=== PATIENT | male | born 1955 | race Caucasian/White ===

== ENCOUNTER 2018-09-23 12:21 | Inpatient (IN) | payer OTHER ==
[~2018-09-23] VITALS: Ht 175.3 cm; Wt 85.7 kg
--- NOTE | 2018-09-23 12:40 | NUR ---
patient presented to the ER c/o L sided chest pressure, constant, nonradiating, since this morning. On room air, breathing evenly and unlabored. Connected to the monitor and pulse ox. Kept comfortable. will continue to monitor accordigly.
[2018-09-23] MEDS ORDERED: ASPIRIN 81 MG TAB.CHEW ONE (12:43)
[2018-09-23 12:48] LABS: BASOPHILS # (AUTO) 0.1 /CMM (0.0-0.2); BASOPHILS % (AUTO) 1.2 % (0.0-2.0); EOSINOPHILS % (AUTO) 5.6 % (0.0-6.0); HEMATOCRIT 50 % (39-51); HEMOGLOBIN 16.8 g/dL (13.5-17.5); LYMPHOCYTES # (AUTO) 1.4 /CMM (0.8-4.8); LYMPHOCYTES % (AUTO) 20.1 % (20.0-44.0); MEAN CORPUSCULAR HGB CONC 33 g/dl (31.0-36.0); MEAN CORPUSCULAR VOLUME 87 fL (80-96); MONOCYTES # (AUTO) 0.6 /CMM (0.1-1.30); MONOCYTES % (AUTO) 9.5 % (2.0-12.0); NEUTROPHILS # (AUTO) 4.3 /CMM (1.8-8.9); NEUTROPHILS % (AUTO) 63.6 % (43.0-81.0); PLATELET COUNT (AUTO) 175 /CMM (150-450); RED BLOOD CELL COUNT(AUTO) 5.75 MIL/uL (4.5-6.0); WHITE BLOOD COUNT (AUTO) 6.8 K/uL (4.3-11.0)
[2018-09-23] MEDS ORDERED: ASPIRIN 81 MG TAB.CHEW PO ONE (13:00)
--- NOTE | 2018-09-23 13:12 | NUR ---
CALLED HOUSE SUP FOR TELE BED.
[2018-09-23 13:15] LABS: CALCIUM, SERUM 9.6 mg/dL (8.5-10.1); CARBON DIOXIDE 26 mmol/L (21-32); CHLORIDE 105 mmol/L (98-107); GLUCOSE 110 mg/dL (74-106); POTASSIUM 3.9 mmol/L (3.5-5.1); SODIUM SERUM 138 mmol/L (136-145); UREA NITROGEN, BLOOD 10 mg/dL (7-18)
[2018-09-23 13:20] LABS: ALANINE AMINOTRANSFERASE 41 U/L (12-78); ALBUMIN 3.5 g/dL (3.4-5.0); ALKALINE PHOSPHATASE 117 U/L (46-116); ASPARTATE AMINOTRANSFERASE 29 U/L (15-37); BILIRUBIN,DIRECT 0.1 mg/dL (0.0-0.2); BILIRUBIN,TOTAL 0.6 mg/dL (0.2-1.0); TOTAL PROTEIN, SERUM 7.6 g/dL (6.4-8.2)
[2018-09-23] MEDS ORDERED: ZOLPIDEM TARTRATE 5 MG TABLET PO PRN (14:00)
[2018-09-23] MEDS ORDERED: NITROGLYCERIN 0.4 MG/TAB BOTTLE SL ONE ×2 (14:00→19:30)
[2018-09-23] MEDS ORDERED: Z GUARD REMEDY 2 OZ OINT TP PRN (14:00)
[2018-09-23] MEDS ORDERED: MAG HYDROX/AL HYDROX/SIMETH 30 ML UDC PO PRN (14:00)
[2018-09-23] MEDS ORDERED: HYDROCODONE/APAP 5/325MG 1 EACH TABLET PO PRN (14:00)
[2018-09-23] MEDS ORDERED: MAGNESIUM HYDROXIDE 30 ML UDC PO PRN (14:00)
[2018-09-23] MEDS ORDERED: MORPHINE SULFATE INJ 2 MG/ML DISP.SYRIN IV PRN (14:00)
[2018-09-23] MEDS ORDERED: ACETAMINOPHEN 325 MG TABLET PO PRN (14:00)
[2018-09-23] MEDS ORDERED: ONDANSETRON HCL/PF 4 MG/2 ML VIAL IVP PRN (14:00)
--- NOTE | 2018-09-23 14:33 | NUR ---
TELE BED GIVEN 304-2
--- NOTE | 2018-09-23 15:00 | NUR ---
KNITTER OPERATORBROKER IN CHARGE NOTES Received Patient in stable condition via helderrmic. A/O x 4. Patient ambulatory. Sitting on chair and on cellphone at this moment. VS stable with no acute distress. Breathing even and unlabored on room air with no respiratory distress. Denies pain. Tele monitor in place and operational. SR, HR-82. PIV on RAC 18g. IV site clean, dry, intact and flushes well. Skin intact, no pictures required. Belongings recorded. Call light within reach. Will continue to monitor.
--- NOTE | 2018-09-23 15:10 | NUR ---
wheeled patient via gurney to room 304-2 T accompanied by emt and RN assigned in no apparent distress noted. Alaina RN at bedside and assumed care.
[2018-09-23 16:00] VITALS: BP 167/100
[2018-09-23] MEDS ORDERED: ATORVASTATIN 40 MG TABLET PO SCH (16:00)
[2018-09-23] MEDS ORDERED: CARVEDILOL 3.125 MG TABLET PO SCH (17:00)
[2018-09-23] MEDS: METOPROLOL TARTRATE 50 MG TABLET PO SCH ×2 (17:37→23:13)
[2018-09-23 18:20] VITALS: BP 167/103
--- NOTE | 2018-09-23 18:24 | NUR ---
MELTER LOADER NOTES Patient left for CT Angiogram with contrast via wheelchair with transport at this moment.
[2018-09-23] MEDS ORDERED: IOHEXOL-350 100 ML VIAL IV ONE (18:28)
[2018-09-23] MEDS ORDERED: CT SWABBABLE VALVE TRANS SET 1 EA INFUS.SET MC ONE (18:28)
[2018-09-23] MEDS ORDERED: IV NS 0.9% 250 ML IV ONE (18:28)
[2018-09-23] MEDS ORDERED: METOPROLOL TARTRATE INJ 5 MG/5 ML AMPUL ONE ×2 (18:45→19:07)
[2018-09-23] MEDS ORDERED: NITROGLYCERIN 0.4 MG/TAB BOTTLE ONE (18:45)
[2018-09-23] MEDS ORDERED: IV NS 0.9% 500 ML IV PRN (19:30)
[2018-09-23] MEDS ORDERED: METOPROLOL TARTRATE INJ 5 MG/5 ML AMPUL IVP ONE (19:30)
--- NOTE | 2018-09-23 19:55 | NUR ---
AVIATION ELECTRONIC WARFARE OPERATOR OPENING NOTES Patient came back from CT angio, alert, oriented x 4. Breathing even and unlabored. Not in any distress. Patient has no complaints at this time, denies chest pain. Asked for his dinner- heated up and given to patient. Tele monitor in place- sinus rhythm 85. Call light within reach. Bed in low, locked position. Patient stable as endorsed by the AM RN. Will continue to monitor accordingly
--- NOTE | 2018-09-23 19:58 | NUR ---
HYDROMETEOROLOGIST CLOSING NOTES Patient in Radiology Dept. for CT Angiogram at this moment. Last seen Patient at 1824 in stable condition. All needs rendered. VS stable with no acute distress. Breathing even and unlabored on room air with no respiratory distress. Denies pain. A/O x 4. Patient ambulatory. Tele monitor in place and operational. SR, HR-79. PIV on RAC 18g saline lock. IV site clean, dry, intact and flushes well. Will endorse plan of care to oncoming nurse.
[2018-09-23 20:00] VITALS: BP 142/99
--- NOTE | 2018-09-23 22:40 | NUR ---
RN NOTES Patient c/o of mild headache. Requesting for tylenol- given as ordered. Will continue to monitor. Patient also requesting to be unhooked from IVF as it would be hard for him to sleep if he is connected to IVF.
[2018-09-24] VITALS: BP 134/92
[2018-09-24 04:00] VITALS: BP 130/88
[2018-09-24] MEDS: METOPROLOL TARTRATE 50 MG TABLET PO SCH (05:34)
--- NOTE | 2018-09-24 06:59 | NUR ---
RADIAGRAPH OPERATOR CLOSING NOTES Patient sitting up in chair near bed, alert, oriented x 4. All needs rendered. VS stable with no acute distress. Breathing even and unlabored, on room air with no respiratory distress. No complaints of chest pain throughout the shift. Tele monitor in place and operational, SR, HR-64. IV line on RAC 18g saline lock. IV site clean, dry, intact and flushes well. Will endorse plan of care to oncoming nurse.
[2018-09-24 07:38] LABS: BASOPHILS # (AUTO) 0.1 /CMM (0.0-0.2); BASOPHILS % (AUTO) 1.3 % (0.0-2.0); EOSINOPHILS % (AUTO) 5.1 % (0.0-6.0); HEMATOCRIT 52 % (39-51); HEMOGLOBIN 17.3 g/dL (13.5-17.5); LYMPHOCYTES # (AUTO) 1.2 /CMM (0.8-4.8); LYMPHOCYTES % (AUTO) 17.3 % (20.0-44.0); MEAN CORPUSCULAR HGB CONC 34 g/dl (31.0-36.0); MEAN CORPUSCULAR VOLUME 87 fL (80-96); MONOCYTES # (AUTO) 0.7 /CMM (0.1-1.30); MONOCYTES % (AUTO) 10.7 % (2.0-12.0); NEUTROPHILS # (AUTO) 4.5 /CMM (1.8-8.9); NEUTROPHILS % (AUTO) 65.6 % (43.0-81.0); PLATELET COUNT (AUTO) 184 /CMM (150-450); RED BLOOD CELL COUNT(AUTO) 5.91 MIL/uL (4.5-6.0); WHITE BLOOD COUNT (AUTO) 6.9 K/uL (4.3-11.0)
--- NOTE | 2018-09-24 07:47 | NUR ---
RN MS OPENING NOTES Received patient on room air, no sob noted. Patient a/o x4, patient denies pain at this time time. IV site clean and intact. Patient seen standing with good gait and balance. Patient's bed at the lowest setting, call light within reach.
[2018-09-24 07:52] LABS: CALCIUM, SERUM 9.7 mg/dL (8.5-10.1); CREATININE 1.1 mg/dL (0.6-1.3); MAGNESIUM 2.1 mg/dL (1.8-2.4); PHOSPHORUS 3.9 mg/dL (2.5-4.9); POTASSIUM 4.5 mmol/L (3.5-5.1)
[2018-09-24 08:00] VITALS: BP 152/84
[2018-09-24 08:09] LABS: THYROID STIMULATING HORMONE 3.353 uIU/mL (0.358-3.74)
[2018-09-24 08:21] VITALS: BP 152/89
[2018-09-24] MEDS ORDERED: VALSARTAN 80 MG TABLET PO SCH (09:00)
[2018-09-24] MEDS ORDERED: METOPROLOL TARTRATE 50 MG TABLET PO SCH (09:00)
[2018-09-24] MEDS ORDERED: ASPIRIN 81 MG TAB.CHEW PO SCH (09:00)
[2018-09-24] MEDS ORDERED: METO100T14 PO (11:15)
[2018-09-24] MEDS ORDERED: ASPI-1169 PO (11:15)
[2018-09-24] MEDS ORDERED: VALS160T2 PO (11:15)
--- NOTE | 2018-09-24 12:34 | NUR ---
RN MS DISCHARGE NOTES Patient discharged around 1210. No sob noted, vital signs stable. Patient went home with his . Patient had all the discharge paper signed, and with all questions answered. Patient's belonging's list is signed and nothing is missing. Patient went home with all his clothes, money, credit card, and cell phone hvac refrigeration technician. Patient had his prescription with him as well.
== END 2018-09-24 12:10 | disposition home or self-care (01) | DRG 305 ==
LOC: ER 12:26 → TELE 14:38 → MED 09-24 08:34
PROVIDERS: ADMIT Nurse Practitioner Acute Care; ATTEND Nurse Practitioner Acute Care
DX: I16.0 Hypertensive urgency (principal); F41.9 Anxiety disorder, unspecified; F12.90 Cannabis use, unspecified, uncomplicated; G89.29 Other chronic pain; M54.9 Dorsalgia, unspecified; I10 Essential (primary) hypertension
CPT/HCPCS: 36415; 71045-TC; 75574; 80048-TC; 80061-TC; 80076-TC; 83690-TC; 83735-TC; 84100-TC; 84443-TC; 84484-TC; 85025-TC; 87081-TC; 93307-TC; G0378; J3490; J7040; J7050; Q9967

== ENCOUNTER 2020-09-14 07:16 | Inpatient (IN) | payer OTHER, MEDICARE ==
[~2020-09-14] VITALS: Ht 175.3 cm; Wt 83.0 kg
[~2020-09-14 07:16] MED LIST: ASPI-1169 PO; METO100T14 PO; VALS160T2 PO
--- NOTE | 2020-09-14 07:35 | NUR ---
patient came in to the er c/o chest tightness x 1 week, worse this morning. On room air, breathing evenly and unlabored. connected to the monitor and pulse ox. kept comfortable, will continue to monitor accordingly.
--- NOTE | 2020-09-14 07:55 | NUR ---
MOVE SHEET SUBMITTED AND CALLED FOR TELE BED.
[2020-09-14] MEDS ORDERED: NITROGLYCERIN 0.4 MG/TAB BOTTLE SL ONE (08:00)
[2020-09-14] MEDS ORDERED: ASPIRIN 325 MG TABLET PO ONE (08:00)
--- NOTE | 2020-09-14 08:02 | NUR ---
Patient denies any pain at this time 5 mins after first nitro tab given, MD notifed and will continue to monitor accordingly.
--- NOTE | 2020-09-14 08:03 | NUR ---
IV access initiated, blood drawned and sent to lab.
[2020-09-14 08:04] LABS: BASOPHILS # (AUTO) 0.1 /CMM (0.0-0.2); BASOPHILS % (AUTO) 1.1 % (0.0-2.0); EOSINOPHILS % (AUTO) 2.4 % (0.0-6.0); HEMATOCRIT 47 % (39-51); HEMOGLOBIN 15.2 g/dL (13.5-17.5); LYMPHOCYTES % (AUTO) 14.1 % (20.0-44.0); MEAN CORPUSCULAR HGB CONC 33 g/dl (31.0-36.0); MEAN CORPUSCULAR VOLUME 87 fL (80-96); MONOCYTES # (AUTO) 0.6 /CMM (0.1-1.30); MONOCYTES % (AUTO) 8.1 % (2.0-12.0); NEUTROPHILS # (AUTO) 5.1 /CMM (1.8-8.9); NEUTROPHILS % (AUTO) 74.3 % (43.0-81.0); PLATELET COUNT (AUTO) 207 /CMM (150-450); RED BLOOD CELL COUNT(AUTO) 5.41 MIL/uL (4.5-6.0); WHITE BLOOD COUNT (AUTO) 6.9 K/uL (4.3-11.0)
[2020-09-14 08:15] LABS: CALCIUM, SERUM 8.9 mg/dL (8.5-10.1); CARBON DIOXIDE 27 mmol/L (21-32); CHLORIDE 105 mmol/L (98-107); CREATININE 1.2 mg/dL (0.6-1.3); GLUCOSE 113 mg/dL (74-106); POTASSIUM 3.6 mmol/L (3.5-5.1); SODIUM SERUM 140 mmol/L (136-145); UREA NITROGEN, BLOOD 9 mg/dL (7-18)
[2020-09-14] MEDS ORDERED: AMLO-212 PO (08:25)
[2020-09-14] MEDS ORDERED: LOSA50TA39 PO (08:25)
--- NOTE | 2020-09-14 09:37 | NUR ---
COVID POSITIVE RESULT PER LAB
--- NOTE | 2020-09-14 09:41 | NUR ---
room 104
--- NOTE | 2020-09-14 09:53 | NUR ---
[facility] CALLED SHIRT MAKER PAGED.
--- NOTE | 2020-09-14 10:26 | NUR ---
report given to Hannah MURILLO for bora
[2020-09-14] MEDS ORDERED: MAGNESIUM HYDROXIDE 30 ML UDC PO PRN (11:00)
[2020-09-14] MEDS ORDERED: ONDANSETRON HCL/PF 4 MG/2 ML VIAL IVP PRN (11:00)
[2020-09-14] MEDS ORDERED: TEMAZEPAM 15 MG CAPSULE PO PRN (11:00)
[2020-09-14] MEDS: LOSARTAN POTASSIUM 50 MG TABLET PO SCH ×2 (11:00→16:43)
[2020-09-14] MEDS ORDERED: MAG HYDROX/AL HYDROX/SIMETH 30 ML UDC PO PRN (11:00)
[2020-09-14] MEDS ORDERED: ACETAMINOPHEN 325 MG TABLET PO PRN (11:00)
[2020-09-14] MEDS: AMLODIPINE BESYLATE 5 MG TABLET PO SCH (11:00)
[2020-09-14] MEDS: ENOXAPARIN SODIUM 40 MG/0.4 ML DISP.SYRIN SQ SCH ×2 (11:00→12:37)
[2020-09-14] MEDS ORDERED: ONDANSETRON HCL/PF 4 MG/2 ML VIAL ONE (11:06)
[2020-09-14] MEDS ORDERED: MORPHINE SULFATE INJ 4 MG/ML DISP.SYRIN ONE (11:06)
[2020-09-14] MEDS ORDERED: ONDANSETRON HCL/PF - ER 4 MG/2 ML VIAL IV ONE (11:30)
[2020-09-14] MEDS ORDERED: MORPHINE SULFATE INJ 4 MG/ML DISP.SYRIN IV ONE (11:30)
--- NOTE | 2020-09-14 11:30 | NUR ---
wheeled patient via gurney accompanied by RN and emt in no distress. RN at bedside to assume care.
[2020-09-14 11:41] VITALS: BP 131/87
[2020-09-14] MEDS: METOPROLOL TARTRATE 25 MG TABLET PO SCH ×4 (12:00→21:26)
[2020-09-14 12:03] LABS: C-REACTIVE PROTEIN 0.7 mg/dL (0.0-0.9)
--- NOTE | 2020-09-14 12:21 | NUR ---
NEUROLOGY MANAGER NOTE RECEIVED PATIENT FROM ER WITH DX CHEST PAIN ,R\O ACS, ALERT ,ORIENTED X4 , ON TELE MONITOR SR HR 77, ADMITTED UNDER CARE SUZANNE MURILLO MARKETING AUTOMATION SPECIALIST BED IN LOWEST AND LOCKED POSITION,BODY CHECKED DONE BUT REFUSED , STATED I AM OK , BELONGING CHECKED,VS TAKEN NO C\O CHEST PAIN ,OR DIZZINESS, NO SOB CALL LIGHT WITHIN REACH , PLAN OFV CARE DISCUSSED WITH PATIENT
[2020-09-14] MEDS: ASPIRIN 81 MG TAB.CHEW PO SCH (12:35)
[2020-09-14] MEDS: ATORVASTATIN 10 MG TABLET PO SCH (12:38)
[2020-09-14] MEDS: HYDROCODONE/APAP 5/325MG TABLET PO PRN ×2 (12:56→22:14)
--- NOTE | 2020-09-14 13:00 | NUR ---
DESIGN CELL ENGINEER NOTE C\O CHEST TIGHTNESS TYLENOL PO GIVEN ORDERED, WILL MONITOR
--- NOTE | 2020-09-14 13:25 | NUR ---
ROUTE SUPERVISOR NOTE SUZANNE VINCENT RN DETECTIVE NOTIFIED THAT PATIENT REFUSING LOVENOX AND METOPROLOL AND MORPHINE AND ZOFRAN ,STATED THAT WILL SEE HIM SOON
--- NOTE | 2020-09-14 15:00 | NUR ---
mental telepathist note pcr test done ,sent to lab
[2020-09-14 16:12] VITALS: BP 136/83
--- NOTE | 2020-09-14 18:25 | NUR ---
SULFUR BURNER NOTE REFUSED TO EAT C\O THAT FOOD IS NOT GOOD , CALLED DIETARY SPOKE WITH FERNANDO SPOKE WITH PATIENT
--- NOTE | 2020-09-14 19:15 | NUR ---
tegan/rotary drier received report from day nurse. see flowsheet for assessment.
--- NOTE | 2020-09-14 19:30 | NUR ---
KELLY/GAS OR WATER METER INSTALLER LAST TROP WAS DRAWN, AWAIT THE RESULTS.
[2020-09-14 20:00] VITALS: BP 129/83
--- NOTE | 2020-09-14 20:00 | NUR ---
KELLY/STORAGE WHARFAGE CLERK ORDER PUT INTO COMPUTER FOR MRSA THIS WAS PHONED INTO THE UNIT PER JUNIOR SYSTEMS ADMINISTRATOR. ORDER WAS PLACED INTO COMPUTER.
--- NOTE | 2020-09-14 21:27 | NUR ---
tegan/electrical transmission engineer pt requested norco 1 tab pain is 7/10 to chest. will monitor this
[2020-09-14 21:55] VITALS: BP 129/83
--- NOTE | 2020-09-14 22:23 | NUR ---
KELLY/FRAMEMAN PT REQUESTED SLEEP AID, RESTERIL GIVEN. TROP DONE AT 1900 WAS NEG. THIS WAS THE THIRD ONE.
--- NOTE | 2020-09-15 00:10 | NUR ---
KELLY/COBBLER SOLE PT REFUSED MIDNIGHT VITAL SIGNS. WILL TRY AGAIN IN AM.
--- NOTE | 2020-09-15 00:30 | NUR ---
KELLY/LENS HARDENER PT REFUSED HIS MIDNIGHT LOPRESSOR, EXPLAIN THE BENIFITS HOWEVER PT STILL REFUSED. SAID HE TOOK HIS MEDS AT HOME.
--- NOTE | 2020-09-15 01:00 | NUR ---
KELLY/MARKETING AND DEVELOPMENT COORDINATOR PT APPEARS TO BE ASLEEP. ALSO PT REQUESTED NOT BE BOTHERED WITH MIDNIGHT BP. HE REFUSED.
[2020-09-15] MEDS: METOPROLOL TARTRATE 25 MG TABLET PO SCH ×2 (06:00→12:00)
--- NOTE | 2020-09-15 06:01 | NUR ---
KELLY/PRE SALES TECHNICAL CONSULTANT PT WAS REFUSING AM LABS AT 0500, EXPLAINED THAT DR NGUYEN WOULD LIKE THE TROP. DRAWN FOR THE AM. THEN PT AGREED. ALSO AT THIS TIME DID THE 0400 AM VITAL SIGNS WHICH PT HAD REFUSED AT 0400. AND PT ASKED FOR SOMETHING FOR CONSTIPATION, GAVE MOM.
[2020-09-15 06:15] VITALS: BP 141/75
--- NOTE | 2020-09-15 06:25 | NUR ---
KELLY/ASSISTANT PROSECUTING ATTORNEY PT ALLOWED US TO TAKE HIS BLOOD FOR AM LABS ALONG WITH DOING MORNING VITAL SIGNS.
--- NOTE | 2020-09-15 06:26 | NUR ---
KELLY/OVERLOCK COLLAR SETTER PT REFUSED MOM FOR CONSTIPATION.
[2020-09-15 06:39] LABS: BASOPHILS % (AUTO) 0.4 % (0.0-2.0); EOSINOPHILS % (AUTO) 3.4 % (0.0-6.0); HEMATOCRIT 49 % (39-51); HEMOGLOBIN 16.5 g/dL (13.5-17.5); LYMPHOCYTES # (AUTO) 1.3 /CMM (0.8-4.8); MEAN CORPUSCULAR HGB CONC 33 g/dl (31.0-36.0); MEAN CORPUSCULAR VOLUME 86 fL (80-96); MONOCYTES # (AUTO) 0.6 /CMM (0.1-1.30); MONOCYTES % (AUTO) 8.9 % (2.0-12.0); NEUTROPHILS # (AUTO) 4.3 /CMM (1.8-8.9); NEUTROPHILS % (AUTO) 67.3 % (43.0-81.0); PLATELET COUNT (AUTO) 225 /CMM (150-450); WHITE BLOOD COUNT (AUTO) 6.4 K/uL (4.3-11.0)
--- NOTE | 2020-09-15 07:20 | NUR ---
RN OPENING NOTE PATIENT RECEIVED ALERT ORIENTED X4 RESTING IN SEMI-FOWLERS POSITION. PATIENT IS VERBALLY RESPONSIVE ON ROOM AIR TOLERATING WELL. NO SOB OR ACUTE DISTRESS NOTED. IV SITE ON LEFT AC # 18 INTACT AND PATENT. SAFETY PRECAUTIONS IMPLEMENTED, BED LOCKED IN LOWEST POSITION, SIDE RAILS UP X2, CALL LIGHT WITHIN REACH. WILL CONTINUE TO MONITOR AND PROVIDE CARE THROUGHOUT SHIFT.
[2020-09-15 07:29] LABS: CHOLESTEROL 122 mg/dL (<200); HDL CHOLESTEROL 37 mg/dL (40-60); LDL 77 mg/dL (0-99); TRIGLYCERIDES 61 mg/dL (30-150)
[2020-09-15 07:31] LABS: ALANINE AMINOTRANSFERASE 42 U/L (12-78); ALBUMIN 3.7 g/dL (3.4-5.0); ALKALINE PHOSPHATASE 118 U/L (46-116); ASPARTATE AMINOTRANSFERASE 28 U/L (15-37); BILIRUBIN,TOTAL 0.8 mg/dL (0.2-1.0); CALCIUM, SERUM 9.4 mg/dL (8.5-10.1); CARBON DIOXIDE 24 mmol/L (21-32); CHLORIDE 104 mmol/L (98-107); CREATININE 1.1 mg/dL (0.6-1.3); GLUCOSE 111 mg/dL (74-106); MAGNESIUM 2.1 mg/dL (1.8-2.4); PHOSPHORUS 3.3 mg/dL (2.5-4.9); POTASSIUM 3.8 mmol/L (3.5-5.1); SODIUM SERUM 137 mmol/L (136-145); TOTAL PROTEIN, SERUM 8.2 g/dL (6.4-8.2); UREA NITROGEN, BLOOD 9 mg/dL (7-18)
[2020-09-15 08:00] VITALS: BP 135/95
[2020-09-15] MEDS: ENOXAPARIN SODIUM 40 MG/0.4 ML DISP.SYRIN SQ SCH (09:00)
[2020-09-15] MEDS: ATORVASTATIN 10 MG TABLET PO SCH ×2 (09:00→09:29)
[2020-09-15] MEDS: VALSARTAN 80 MG TABLET PO SCH ×2 (09:00→09:29)
[2020-09-15] MEDS: ASPIRIN 81 MG TAB.CHEW PO SCH (09:28)
[2020-09-15] MEDS: AMLODIPINE BESYLATE 5 MG TABLET PO SCH (09:29)
[2020-09-15 12:00] VITALS: BP 135/95
[2020-09-15] MEDS ORDERED: VALS160T29 PO (12:26)
[2020-09-15] MEDS ORDERED: HYDR-3976 PO (12:30)
--- NOTE | 2020-09-15 14:21 | NUR ---
patient discharged from hospital in stable condition. discharge instructions and paperwork provided for client. patient picked up by and transported home.
== END 2020-09-15 14:00 | disposition home or self-care (01) | DRG 313 ==
LOC: ER 07:16 → TELE 08:58 → TELE-TD 09:41 → TELE1 10:46 → MEDSG1 09-15 07:52
PROVIDERS: ADMIT Nurse Practitioner Family; ATTEND Nurse Practitioner Family
DX: R07.89 Other chest pain (principal); I10 Essential (primary) hypertension; F17.210 Nicotine dependence, cigarettes, uncomplicated; R42 Dizziness and giddiness; Z71.6 Tobacco abuse counseling; Z20.822 Contact with and (suspected) exposure to COVID-19
CPT/HCPCS: 36415; 71045-TC; 80048-TC; 80053-TC; 80061-TC; 82728-TC; 83615-TC; 83735-TC; 84100-TC; 84484-TC; 85025-TC; 86140-TC; 87081-TC; G0378; J1650; J2270; J2405; U0003